=== PATIENT | male | born 1960 | race American Indian/Alaskan Native ===

== ENCOUNTER 2021-09-06 07:52 | Emergency (ER) | payer MEDICARE ==
--- NOTE | 2021-09-06 10:54 | Emergency Department Report ---
ED Abdominal Pain HPI - General Chief Complaint: Abdominal Pain Stated Complaint: ABDOMINAL PAIN PUI?: No Time Seen by Provider: 09/06/21 10:31 Source: patient Mode of arrival: Stretcher Limitations: No Limitations - History of Present Illness Initial Comments: 61-year-old -[place] male presents to the emergency room for diffuse abdominal pain nausea vomiting dry mouth chills and sweats since about 4 AM. Patient is taking nothing for it. Patient [place] He states that he is not from here. He reports his medications and Lyrica tramadol for chronic pain and amitriptyline. MD Complaint: abdominal pain -: This morning Location: diffuse Radiation: none Severity scale (0 -10): 4 Associated Symptoms: nausea, vomiting - Related Data Home Medications Medication Instructions Recorded Confirmed Last Taken Amitriptyline [Elavil] 100 mg PO QHS 09/06/21 09/06/21 Unknown Pregabalin [Lyrica] 50 mg PO TID 09/06/21 09/06/21 Unknown Previous Rx's Medication Instructions Recorded Last Taken Type Docusate Sodium [Colace] 100 mg PO BID PRN #20 capsule 09/06/21 Unknown Rx Allergies Allergy/AdvReac Type Severity Reaction Status Date / Time codeine AdvReac Nausea Verified 09/06/21 08:07 ED Review of Systems ROS: Stated complaint: ABDOMINAL PAIN Other details as noted in HPI Comment: All other systems reviewed and negative ED Past Medical Hx - Medications Home Medications: Home Medications Medication Instructions Recorded Confirmed Last Taken Type Amitriptyline [Elavil] 100 mg PO QHS 09/06/21 09/06/21 Unknown History Docusate Sodium [Colace] 100 mg PO BID PRN #20 capsule 09/06/21 Unknown Rx Pregabalin [Lyrica] 50 mg PO TID 09/06/21 09/06/21 Unknown History ED Physical Exam - General Limitations: No Limitations ED Course Vital Signs 09/06/21 08:02 Temperature 98.5 F Pulse Rate 80 Respiratory 18 Rate Blood Pressure 168/96 [Left] O2 Sat by Pulse 100 Oximetry ED Medical Decision Making - Lab Data Result diagrams: 09/06/21 10:47 09/06/21 10:47 - Radiology Data Radiology results: report reviewed [facility] [address] [place] [address] Cat Scan Report Signed Patient: KIMBERLEY PEACOCK MR#: [id number] : 1960 Acct:[id number] Age/Sex: 61 / M ADM Date: 09/06/21 Loc: ED Attending Dr: Ordering Physician: JUAN M GLOVER Date of Service: 09/06/21 Procedure(s): CT abdomen pelvis w con Accession Number(s): [id number] cc: JUAN M GLOVER CT ABDOMEN AND PELVIS WITH CONTRAST HISTORY: Diffuse abdominal pain and tenderness COMPARISON: None TECHNIQUE: Routine abdominal and pelvic CT exam performed following intravenou s contrast administration.. All CT scans at this location are performed using CT dose reduction for ALARA by means of automated exposure control. FINDINGS: CT ABDOMEN: Lung Bases: No significant abnormality. Liver: No significant abnormality. Biliary: Gallbladder is surgically absent. Spleen: No significant abnormality. Unenlarged. Pancreas: No significant abnormality. Adrenals: No significant abnormality. Kidneys: No significant abnormality. Lymphatics: No lymphadenopathy. Vasculature: Atherosclerotic but nonaneurysmal abdominal aorta. Bowel/Peritoneum: No acute findings. Mild constipation. CT PELVIC: : No significant abnormality. Lymphatics: No lymphadenopathy. Osseous Structures: No aggressive appearing osseous lesions. There is a small osteochondroma along the lateral aspect of the right iliac wing. There is a chronic appearing vertebral compression fr acture of T10. 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 Additional Findings: None IMPRESSION: 1. No acute findings. Mild constipation. Signer Name: Kennedy Tyler MD Signed: 09/06/2021 3:43 PM Workstation Name: [id number] Transcribed By: NEHA Dictated By: Kennedy Tyler MD Electronically Authenticated By: Kennedy Tyler MD Signed Date/Time: 09/06/21 1543 DD/ 1541 TD/TT: Print Cancel - Medical Decision Making 61-year-old -[place] male presents to the emergency room for diffuse a bdominal pain nausea vomiting dry mouth chills and sweats since about 4 AM. Patient is taking nothing for it. Patient reports [place] He states that he is not from here. He reports his medications and Lyrica tramadol for chronic pain and amitriptyline. CBC CMP lipase has been ordered. Critical care attestation.: If time is entered above; I have spent that time in minutes in the direct care of this critically ill patient, excluding procedure time. ED Disposition Clinical Impression: Constipation, Nonspecific abdominal pain Disposition: 01 HOME / SELF CARE / HOMELESS Is pt being admited?: No Does the pt Need Aspirin: No Condition: Stable Additional Instructions: Labs are nonactionable. CT scan shows mild constipation. I recommend [id number] Colace. Increase your fluid intake. Follow-up with a primary care provider. Prescriptions: Docusate Sodium [Colace] 100 mg PO BID PRN #20 capsule PRN Reason: Constipation Time of Disposition: 15:51
[2021-09-06 11:00] LABS: Basophils % (Auto) 0.7 % (0.0-1.8); Eosinophils % (Auto) 0.2 % (0.0-4.3); Hematocrit 37.1 % (35.5-45.6); Hemoglobin 12.8 gm/dl (11.8-15.2); Lymphocytes # (Auto) 0.7 K/mm3 (1.2-5.4); Lymphocytes % (Auto) 10.3 % (13.4-35.0); Mean Corpuscular HGB Conc 35 % (32-34); Mean Corpuscular Volume 93 fl (84-94); Monocytes # (Auto) 0.4 K/mm3 (0.0-0.8); Monocytes % (Auto) 6.5 % (0.0-7.3); Platelet Count 334 K/mm3 (140-440); Red Blood Count 3.97 M/mm3 (3.65-5.03); Red Cell Distribution Width 13.5 % (13.2-15.2)
[2021-09-06 11:26] LABS: Alanine Aminotransferase 103 units/L (7-56); Albumin 4.7 g/dL (3.9-5); BUN/Creatinine Ratio 25; Blood Urea Nitrogen 20 mg/dL (9-20); Calcium 9.3 mg/dL (8.4-10.2); Hemolysis Index 12
[2021-09-06] MEDS ORDERED: ONDANSETRON 4 MG/2 ML INJ IV ONE (14:33)
--- NOTE | 2021-09-06 15:47 | Cat Scan Report ---
CT ABDOMEN AND PELVIS WITH CONTRAST HISTORY: Diffuse abdominal pain and tenderness COMPARISON: None TECHNIQUE: Routine abdominal and pelvic CT exam performed following intravenous contrast administrat ion.. All CT scans at this location are performed using CT dose reduction for ALARA by means of autom ated exposure control. FINDINGS: CT ABDOMEN: Lung Bases: No significant abnormality. Liver: No significant abnormality. Biliary: Gallbladder is surgically absent. Spleen: No significant abnormality. Unenlarged. Pancreas: No significant abnormality. Adrenals: No significant abnormality. Kidneys: No significant abnormality. Lymphatics: No lymphadenopathy. Vasculature: Atherosclerotic but nonaneurysmal abdominal aorta. Bowel/Peritoneum: No acute findings. Mild constipation. CT PELVIC: : No significant abnormality. Lymphatics: No lymphadenopathy. Osseous Structures: No aggressive appearing osseous lesions. There is a small osteochondroma along th e lateral aspect of the right iliac wing. There is a chronic appearing vertebral compression fracture of T10. 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 Additional Findings: None IMPRESSION: 1. No acute findings. Mild constipation. Signer Name: Kennedy Tyler MD Signed: 09/06/2021 3:43 PM Workstation Name: [id number]
[2021-09-06 16:12] VITALS: BP 147/88
== END 2021-09-06 16:10 | disposition home or self-care (01) ==
LOC: ED 07:52
DX: K59.00 Constipation, unspecified (principal); R10.84 Generalized abdominal pain; Z88.5 Allergy status to narcotic agent; Z79.899 Other long term (current) drug therapy
CPT/HCPCS: 36415; 74177; 80053; 83690; 85025; 96374; 99284; J2405; Q9967